=== PATIENT | female | born 1970 | race Caucasian/White ===

== ENCOUNTER 2018-02-03 05:36 | Day surgery (SDC) | payer BC, OTHER ==
[2018-01-28 10:49] LABS: HEMOGLOBIN 12.2 gm/dL (12.0-15.0); MCV 93.7 fL (80.0-100.0); RDW 15.4 % (10.5-14.5)
[2018-01-28 10:50] LABS: HEMATOCRIT 36.7 % (37.0-47.0); MCH 31.2 pg (26.0-34.0); MCHC 33.3 g/dL (28.0-37.0); RBC 3.92 mil/uL (4.20-5.00); WBC 5.8 thou/uL (4.0-11.0)
[2018-01-28 10:58] LABS: ALBUMIN 4.1 g/dL (3.4-5.0); CALCIUM 9.1 mg/dL (8.5-10.1)
[2018-01-28 10:59] LABS: POTASSIUM 3.9 mmol/L (3.5-5.1)
[2018-01-28 11:07] LABS: URINE BILIRUBIN NEGATIVE (Negative); URINE BLOOD TRACE (Negative); URINE CLARITY CLEAR; URINE COLOR YELLOW; URINE GLUCOSE-RANDOM* NEGATIVE (Negative); URINE KETONES TRACE (Negative); URINE LEUKOCYTES-REFLEX NEGATIVE (Negative); URINE NITRITE-REFLEX NEGATIVE (Negative); URINE PROTEIN (DIPSTICK) NEGATIVE (Negative); URINE SPECIFIC GRAVITY >= 1.030 (1.005-1.035); URINE UROBILINOGEN 0.2 E.U./dl (0.2-1.0)
[2018-01-28 11:07] LABS: PROTIME 10.5 Seconds (9.3-11.4)
[~2018-02-03] VITALS: Ht 154.9 cm; Wt 82.1 kg
[2018-02-03] VITALS (7 sets, daily range): BP systolic 92–123; BP diastolic 48–77
--- NOTE | ~2018-02-03 | O ---
[facility] [place] [address] OPERATIVE REPORT Name: VINNIE MONROE Room #: 150-9 [facility] M.R.#: [id number] Admission: 02/03/18 Attend Phys: Perico Nguyen MD Discharge: Date of : 70 Report #: [id number] THIS REPORT FOR: //name// CC: Evangelista Nguyen DATE OF SERVICE: 02/03/2018 PREOPERATIVE DIAGNOSIS: Left knee osteoarthritis. POSTOPERATIVE DIAGNOSIS: Left knee osteoarthritis. PROCEDURE: Left total knee arthroplasty with NAVIO robotic contract administrative assistant. SURGEON: Perico Nguyen MD. BINDERY MACHINE TENDER: None. ANESTHESIA: LMA with an adductor canal block. IMPLANTS: [employer] size 4 Journey II BCS Oxinium femur, a size 2 tibia, size 10 polyethylene and size 32 patella. TOURNIQUET TIME: 67 minutes. ESTIMATED BLOOD LOSS: 25 mL. COMPLICATIONS: None. SPECIMENS: None. CONDITION UPON LEAVING THE OPERATING ROOM: Stable. INDICATIONS FOR PROCEDURE: The patient is a 47-year-old female with left knee osteoarthritis. She had failed conservative measures for this and after discussion with her, she elected for left total knee arthroplasty. DESCRIPTION OF PROCEDURE: Risks, benefits, alternatives, complications were discussed in detail with the patient including but not limited to risk of anesthesia, risk of damage to nerves, arteries, blood vessels, risk for infection, bleeding, risk for continued knee pain and need for reoperation. Informed consent was obtained from the patient. Left knee was appropriately marked in the preoperative holding area. IV clindamycin was given for preoperative antibiotics. Adductor canal block was placed by Anesthesia. She was brought to the operating room and placed in supine position on operating room table. LMA anesthesia was induced without complication. Tourniquet was [address] [address] OPERATIVE REPORT Name: FERVINNIE Room #: 150-9 [facility] M.R.#: [id number] Admission: 02/03/18 Attend Phys: Perico Nguyen MD Discharge: Date of : 70 Report #: [id number] placed on the left thigh. Left lower extremity was prepped and draped in normal sterile fashion. Timeout was performed properly identifying the patient and procedure as well as the instrumentation and implants. All in the operating room were in agreement. Left lower extremity was exsanguinated, tourniquet was inflated. Tourniquet time was 67 minutes. Standard midline approach to knee was made with 10 blade through the skin. Dissection was taken down sharply to the fascia and deep flaps were developed medially and laterally. Fresh 10 blade was used to make a medial parapatellar arthrotomy and then knee was inspected. There was [id number] medial wear as well as mild to moderate lateral wear of the femoral condyle. It was decided to proceed with total knee arthroplasty. Anterior horns of meniscus removed sharply. ACL and PCL were removed sharply. Reference pins were then placed in the femur and the tibia for the NAVIO system. The knee was then digitally mapped using the [employer] robotic system and intraoperative plan was made. We sized to size 4 femur and a size 2 tibia. After acceptance of the intraoperative plan, the distal femoral cut was made with a NAVIO bur. The 5-in-1 cutting block was placed for a size 4 femur and the femoral resection was made. Knee was then hyperflexed, tibia subluxed anteriorly. Tibial resection guide was pinned in place using the NAVIO navigation system for placement and the tibial resection was made. Flexion and extension gaps were then checked and found to have good balance in flexion and extension both medially and laterally. Tibia was sized, found to be a size 2. A size 2 tibial trial was placed, pinned and punched. A size 4 femoral trial was placed and the box cut was made. This was then trialed with a size 9 and then a size 10 polyethylene. The size 10 polyethylene had a better fit throughout range of motion with a millimeter of laxity medially and laterally throughout range of motion of the knee. A 9 mm was taken off the posterior surface of the patella and a size 32 patellar trial button was placed. Knee was taken through range of motion, found to have good patellar tracking. After this, trial components were removed. Bony ends were thoroughly irrigated with normal saline. A final size 2 tibia, size 4 Journey BCS Oxinium femur and a size 32 patella were cemented in place using standard cementation techniques. While the cement cured, a periarticular injection consisting of morphine, ropivacaine, epinephrine, Toradol was placed around the joint capsule. After the cement cured, the tourniquet was deflated. Hemostasis was obtained with a Bovie cautery. Final size 10 polyethylene was placed. A gram of vancomycin was placed deep in the joint. The fascia was closed with 0 Vicryl, skin was closed with 2-0 Vicryl, 3-0 Monocryl, Dermabond and a TODD dressing was applied. The patient tolerated this procedure well and went to recovery room under care of Anesthesia postoperatively. By: [id number] Perico Nguyen MD /vicky
[~2018-02-03 05:36] MED LIST: LEVOXYL112 MCG PO; LEXAPRO 10 MG T10 M1 PO; MYRBETRIQ25 MG PO
[2018-02-04 04:30] VITALS: BP 105/45
[2018-02-04 06:08] LABS: HEMATOCRIT 28.7 % (37.0-47.0); HEMOGLOBIN 9.8 gm/dL (12.0-15.0); MCH 32.1 pg (26.0-34.0); MCHC 34.1 g/dL (28.0-37.0); RBC 3.05 mil/uL (4.20-5.00); RDW 15.4 % (10.5-14.5); WBC 6.1 thou/uL (4.0-11.0)
[2018-02-04 07:30] VITALS: BP 107/53
[2018-02-04] MEDS ORDERED: TRI-BUFFERED A325 M1 PO (14:19)
[2018-02-04] MEDS ORDERED: HYDROCODON-ACE1 EAC7 PO (14:20)
[2018-02-04] MEDS ORDERED: NEURONTIN 300300 M1 PO (14:20)
[2018-02-04] MEDS ORDERED: MS CONTIN15 MG PO (14:20)
[2018-02-04 14:28] VITALS: BP 107/53
== END 2018-02-04 16:54 | disposition home or self-care (01) ==
LOC: OR 05:36 → TBA 05:37 → OR 06:52 → 4E 11:54 → OR 14:14 → ENTRNSPT 02-04 16:33 → OR 02-04 16:54
PROVIDERS: Orthopaedic Surgery
DX: M17.12 Unilateral primary osteoarthritis, left knee (principal); E03.9 Hypothyroidism, unspecified; F32.9 Major depressive disorder, single episode, unspecified; F41.9 Anxiety disorder, unspecified; Z86.2 Personal history of diseases of the blood and blood-forming organs and certain disorders involving the immune mechanism; Z85.3 Personal history of malignant neoplasm of breast; Z90.710 Acquired absence of both cervix and uterus; Z98.890 Other specified postprocedural states; Z90.49 Acquired absence of other specified parts of digestive tract; Z79.899 Other long term (current) drug therapy; Z88.0 Allergy status to penicillin; Z88.2 Allergy status to sulfonamides
CPT/HCPCS: 10783; 50010; 50101; 50415; 50954; 51130; 51225; 51320; 51771; 52001; 52282; 53000; 53078; 54118; 55372; 56527; 56528; 57095; 57103; 57109; 57110; 57113; 57127; 62110; 62900; 70005